=== PATIENT | female | born 1950 | race Caucasian/White ===

== ENCOUNTER 2018-06-13 04:41 | Emergency (ER) | payer MEDICARE ==
[2018-06-13] MEDS ORDERED: DIPH,PERTUS(ACELL)TETVAC-LF 0.5 ML VIAL IM ONE (04:44)
--- NOTE | 2018-06-13 05:13 | ED ---
General Adult HPI - General Stated complaint: FALL Time Seen by Provider: 06/13/18 04:43 Source: patient, EMS, RN notes reviewed, old records reviewed Mode of arrival: EMS Limitations: no limitations - History of Present Illness Initial comments: 68 yo female history of seizure disorder, remote history of subdural hematoma who is nonambulatory at baseline presents for evaluation of fall with head injury. Patient fell out of bed. No loss consciousness. No anticoagulation. She has some bleeding from her nose. Denies headache. Denies neck pain. Denies chest pain, abdominal pain, or hip pain. - Related Data Allergies Allergy/AdvReac Type Severity Reaction Status Date / Time hydrocodone Allergy Unknown Verified 06/13/18 04:47 Penicillins Allergy Unknown Verified 06/13/18 04:47 Childhood Review of Systems ROS Statement: Those systems with pertinent positive or pertinent negative responses have been documented in the HPI. ROS Other: All systems not noted in ROS Statement are negative. Past Medical History Past Medical History: Hypertension, Seizure Disorder Additional Past Medical History / Comment(s): Subdural hemorrhage History of Any Multi-Drug Resistant Organisms: None Reported Past Surgical History: Orthopedic Surgery Past Psychological History: No Psychological Hx Reported Smoking Status: Former smoker Past Alcohol Use History: None Reported, Rare Past Drug Use History: None Reported General Exam Limitations: no limitations General appearance: alert, in no apparent distress Head exam: Present: normocephalic Eye exam: Present: normal appearance, PERRL, EOMI ENT exam: Present: other (Dried blood bilateral external naris, no active bleeding, no septal hematoma, small superficial laceration on the left lateral side of the nose. Ecchymosis over the nasal bridge soft tissue swelling.) Neck exam: Present: normal inspection, full ROM. Absent: tenderness, meningismus Respiratory exam: Present: wheezes. Absent: respiratory distress Cardiovascular Exam: Present: regular rate, normal rhythm GI/Abdominal exam: Present: soft. Absent: distended, tenderness Extremities exam: Present: normal inspection, normal capillary refill. Absent: pedal edema Neurological exam: Present: alert. Absent: motor sensory deficit Skin exam: Present: warm, dry. Absent: cyanosis, diaphoretic Course Vital Signs 06/13/18 04:43 Temperature 97.7 F Pulse Rate 81 Respiratory 18 Rate Blood Pressure 149/90 O2 Sat by Pulse 98 Oximetry Medical Decision Making - Medical Decision Making 68 yo female with fall out of bed and head injury. Patient fell onto her face. She does have some bruising over the nasal bridge and superficial laceration on the left lateral aspect of her nose and upper lip. No need for sutures. Tetanus is updated. Patient has remote history of intracranial hemorrhage, she has [employer] shunt. She is nonambulatory and bedbound at baseline. Patient has no significant pain complaints. She does not want any pain medication the emergency department. Chest x-ray is obtained, negative for acute cardiopulmonary disease, no bony abnormality. X-ray of the pelvis shows remote fracture no acute fracture or dislocation. Head CT shows encephalomalacia, postsurgical changes, no acute cranial hemorrhage Cervical spine negative for fracture. Patient will be discharged back to residential. Disposition Clinical Impression: Fall, Closed head injury, Abrasion [facility] Condition: Fair Instructions: Concussion (ED), Fall Prevention for Older Adults (ED), Abrasion (ED) Is patient prescribed a controlled substance at d/c from ED?: No Referrals: Chirag Rodrigez DO [Primary Care Provider] - 1-2 days Time of Disposition: 05:32 - Out of Hospital Transfer - Req. Specs Out of Hospital Transfer - Requested Specifics: Other Non-Acute (Return to residential)
--- NOTE | 2018-06-13 05:16 | XR ---
EXAMINATION TYPE: XR pelvis AP view DATE OF EXAM: 06/13/2018 COMPARISON: NONE HISTORY: Pain after a fall TECHNIQUE: 2 views FINDINGS: There is deformity of the right hemipelvis related to old bilateral pubic rami fractures. I see no acute fracture. There is a plate and screw fixing an old subtrochanteric fracture of the righ t femur. Sacroiliac joints are intact. There is narrowing of hip joint spaces. IMPRESSION: Old fractures of the pelvis and proximal right femur. No acute fracture seen.
--- NOTE | 2018-06-13 05:17 | XR ---
EXAMINATION TYPE: XR chest 1V portable DATE OF EXAM: 06/13/2018 COMPARISON: NONE HISTORY: Chest pain TECHNIQUE: Single frontal view of the chest is obtained. FINDINGS: There is no heart failure nor confluent pneumonic infiltrate. There is poor inspiration. T here is ventriculoperitoneal shunt catheter noted. There is a right shoulder prosthesis. There is sig nificant spurring at the left shoulder joint. IMPRESSION: Poor inspiration. No active cardiopulmonary disease.
[2018-06-13] MEDS ORDERED: TOPICAL SKIN ADHESIVE 1 EACH AMP TOPICAL ONE (05:25)
--- NOTE | 2018-06-13 05:44 | CT ---
EXAMINATION TYPE: CT brain cecile sanchez DATE OF EXAM: 06/13/2018 COMPARISON: None HISTORY: Fall CT DLP: 1551.50 mGycm Automated exposure control for dose reduction was used. TECHNIQUE: CT scan of the head and cervical spine are performed without contrast. FINDINGS: There is ventricular oh peritoneal shunt catheter with the tip in the right lateral ventr icle. There is mild enlargement of the ventricles. 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 There is no midline shift. There is mildly displaced nasal bone fracture. The calvarium is intact. There is high attenuation over the right frontal lobe convexity. This is isodense with the brain. The re is a small linear area of higher attenuation. All of this could be dural thickening. There is dura l calcification. There is right temporal craniotomy defect. Dural thickening measures up to 5 mm. There are rods and screws fusing posteriorly the lumbar spine from C2 to T1 vertebra. There is a few millimeter anterior subluxation of C3 in relation to C4. There is no compression fracture. The skull base appears intact. I see no fracture. 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 Mild cerebral atrophy. Dural thickening over the right frontal and temporoparietal lobe consistent with old surgery. There is also dural calcification. I s ee no acute intracranial abnormality. Smaller area of encephalomalacia in the right posterior frontal lobe. Multilevel cervical spine posterior fusion surgery. Mild degenerative subluxation deformity at C3-4. No fracture. Nasal bone fracture. There is some deformity of the lateral wall of the right maxillary sinus that co uld be from old fracture.
[2018-06-13 05:58] VITALS: BP 154/74; PULSE 73; RESP 16; TEMP 97.8
== END 2018-06-13 06:17 ==
LOC: EC 04:41
DX: S01.21XA Laceration without foreign body of nose, initial encounter (principal); S01.511A Laceration without foreign body of lip, initial encounter; S09.90XA Unspecified injury of head, initial encounter; Z86.79 Personal history of other diseases of the circulatory system; Z23 Encounter for immunization; Z87.891 Personal history of nicotine dependence; Z88.0 Allergy status to penicillin; Z88.5 Allergy status to narcotic agent; Z98.2 Presence of cerebrospinal fluid drainage device; W06.XXXA Fall from bed, initial encounter
CPT/HCPCS: 70450; 71045; 72125; 72170; 90471; 90715; 99285

== ENCOUNTER 2021-06-13 08:39 | Observation (INO) | payer MEDICARE ==
[2021-06-13] MEDS ORDERED: PANTOPRAZOLE 40 MG/10 ML VIAL IVP STA (08:49)
--- NOTE | 2021-06-13 08:57 | ED ---
General Adult HPI - General Chief complaint: Nausea/Vomiting/Diarrhea Stated complaint: coffee ground emesis Time Seen by Provider: 06/13/21 08:43 Source: patient, RN notes reviewed Mode of arrival: EMS Limitations: no limitations, physical limitation - History of Present Illness Initial comments: Patient is a pleasant 71-year-old female presenting to the emergency department complaints of coffee-ground emesis. Patient has had 2 episodes that occurred today. Patient did have history of one similar episode previously, undetermined why. Patient does not believe she is on blood thinners. No abdominal pain. No nausea. Patient feels fine at this time and is symptom-free. - Related Data Home Medications Medication Instructions Recorded Confirmed Acetaminophen [Tylenol 8 Hour] 650 mg PO Q4H PRN 06/13/21 06/13/21 Budesonide [Pulmicort] 0.5 mg INHALATION RT-QID 06/13/21 06/13/21 Cholecalciferol [Vitamin D3 (10 10 mcg PO DAILY@0800 06/13/21 06/13/21 Mcg = 400 Iu)] Fluticasone Nasal [place] [Flonase 2 spr EA NOSTRIL DAILY PRN 06/13/21 06/13/21 Nasal [place]] Folic Acid 0.2 mg PO DAILY@0800 06/13/21 06/13/21 Furosemide [Lasix] 40 mg PO DAILY@0800 06/13/21 06/13/21 Ipratropium-Albuterol Nebulize 3 ml INHALATION RT-QID 06/13/21 06/13/21 [Duoneb 0.5 mg-3 mg/3 ml Soln] Ipratropium-Albuterol Nebulize 3 ml INHALATION RT-QID PRN 06/13/21 06/13/21 [Duoneb 0.5 mg-3 mg/3 ml Soln] Loratadine 10 mg PO DAILY@0800 06/13/21 06/13/21 Mag Hydrox/Al Hydrox/Simeth 15 ml PO Q6H PRN 06/13/21 06/13/21 [Maalox] Magnesium Hydroxide [Milk of 7,200 mg PO Q48H PRN 06/13/21 06/13/21 Magnesia Concentrate] Metoprolol Tartrate [Lopressor] 25 mg PO BID@0800,1700 06/13/21 06/13/21 Multivitamins, Thera [Multivitamin 1 tab PO DAILY@0800 06/13/21 06/13/21 (formulary)] Na Phos,M-B/Na Phos,Di-Ba [Fleet 133 ml RECTAL DAILY PRN 06/13/21 06/13/21 Adult] Nystatin 100,000 Unit/gm Powd 1 applic TOPICAL BID PRN 06/13/21 06/13/21 [Mycostatin Powder] Polyethylene Glycol 3350 [Miralax] 17 gm PO DAILY PRN 06/13/21 06/13/21 Potassium Chloride ER [K-Dur 10] 10 meq PO DAILY@0800 06/13/21 06/13/21 Sennosides/Docusate Sodium [Leona 1 tab PO BID@0800,1700 06/13/21 06/13/21 Colace] Tolterodine ER [Detrol LA] 2 mg PO DAILY@0800 06/13/21 06/13/21 Triamcinolone 0.1% Cream [Kenalog 1 applic TOPICAL BID 06/13/21 06/13/21 0.1% Cream] amLODIPine [Norvasc] 2.5 mg PO DAILY@0800 06/13/21 06/13/21 bisacodyL [Bisacodyl] 10 mg RECTAL DAILY PRN 06/13/21 06/13/21 lamoTRIgine [LaMICtal] 100 mg PO BID@0800,1700 06/13/21 06/13/21 Allergies Allergy/AdvReac Type Severity Reaction Status Date / Time bee venom protein (honey bee) Allergy Unknown Verified 06/13/21 09:37 hydrocodone Allergy Unknown Verified 06/13/21 09:37 Penicillins Allergy Unknown Verified 06/13/21 09:37 Childhood Review of Systems ROS Statement: Those systems with pertinent positive or pertinent negative responses have been documented in the HPI. ROS Other: All systems not noted in ROS Statement are negative. Constitutional: Denies: fever Eyes: Denies: eye pain ENT: Denies: ear pain Respiratory: Denies: cough Cardiovascular: Denies: chest pain Endocrine: Denies: fatigue Gastrointestinal: Reports: as per HPI. Denies: abdominal pain Genitourinary: Denies: dysuria Musculoskeletal: Denies: back pain Skin: Denies: rash Neurological: Denies: weakness Past Medical History Past Medical History: Hypertension, Seizure Disorder Additional Past Medical History / Comment(s): Subdural hemorrhage- [facility] History of Any Multi-Drug Resistant Organisms: MRSA Date of last positivie culture/infection: 11/02/18 MDRO Source:: THIGH Past Surgical History: Orthopedic Surgery Past Psychological History: No Psychological Hx Reported Smoking Status: Former smoker Past Alcohol Use History: None Reported, Rare Past Drug Use History: None Reported General Exam Limitations: no limitations, physical limitation General appearance: alert, in no apparent distress Head exam: Present: normocephalic Eye exam: Present: normal appearance Neck exam: Present: normal inspection Respiratory exam: Present: normal lung sounds bilaterally Cardiovascular Exam: Present: regular rate, normal rhythm GI/Abdominal exam: Present: soft, normal bowel sounds. Absent: distended, tenderness, pulsatile mass Extremities exam: Present: normal inspection, pedal edema (Mild bilateral, patient states chronic), other (Arthritic changes bilateral hands). Absent: calf tenderness Neurological exam: Present: alert Psychiatric exam: Present: normal affect, normal mood Skin exam: Present: normal color Course Vital Signs 06/13/21 08:44 Temperature 98.6 F Pulse Rate 86 Respiratory 18 Rate Blood Pressure 125/92 O2 Sat by Pulse 97 Oximetry Medical Decision Making - Medical Decision Making Patient reevaluated and updated. Case discussed with Dr. Preston, covering Dr. varela, who will admit. - Lab Data Result diagrams: 06/13/21 09:12 06/13/21 09:12 Lab Results 06/13/21 06/13/21 06/13/21 Range/Units 09:12 09:12 09:12 WBC 10.3 (3.8-10.6) k/uL RBC 4.42 (3.80-5.40) m/uL Hgb 14.8 (11.4-16.0) gm/dL Hct 41.1 (34.0-46.0) % MCV 92.9 (80.0-100.0) fL MCH 33.5 (25.0-35.0) pg MCHC 36.0 (31.0-37.0) g/dL RDW 12.5 (11.5-15.5) % Plt Count 209 (150-450) k/uL MPV 7.1 Neutrophils % 83 % Lymphocytes % 8 % Monocytes % 6 % Eosinophils % 2 % Basophils % 1 % Neutrophils # 8.5 H (1.3-7.7) k/uL Lymphocytes # 0.8 L (1.0-4.8) k/uL Monocytes # 0.6 (0-1.0) k/uL Eosinophils # 0.2 (0-0.7) k/uL Basophils # 0.1 (0-0.2) k/uL PT 10.2 (9.0-12.0) sec INR 0.9 (<1.2) APTT 22.9 (22.0-30.0) sec Sodium 138 (137-145) mmol/L Potassium 4.1 (3.5-5.1) mmol/L Chloride 101 (98-107) mmol/L Carbon Dioxide 34 H (22-30) mmol/L Anion Gap 3 mmol/L BUN 22 H (7-17) mg/dL Creatinine 0.45 L (0.52-1.04) mg/dL Est GFR (CKD-EPI)AfAm >90 (>60 ml/min/1.73 sqM) Est GFR (CKD-EPI)NonAf >90 (>60 ml/min/1.73 sqM) Glucose 121 H (74-99) mg/dL Calcium 9.2 (8.4-10.2) mg/dL Total Bilirubin 0.5 (0.2-1.3) mg/dL AST 40 H (14-36) U/L ALT 42 H (4-34) U/L Alkaline Phosphatase 110 (38-126) U/L Total Protein 6.7 (6.3-8.2) g/dL Albumin 3.9 (3.5-5.0) g/dL Disposition Clinical Impression: Upper GI hemorrhage Disposition: ADMITTED IP TO THIS HOSP Is patient prescribed a controlled substance at d/c from ED?: No Referrals: Chirag Rodrigez DO [Primary Care Provider] - 1-2 days Decision Time: 09:57
[2021-06-13 09:24] LABS: Basophils # (A) 0.1 k/uL (0-0.2); Basophils % (A) 1 %; Eosinophils # (A) 0.2 k/uL (0-0.7); Eosinophils % (A) 2 %; HCT 41.1 % (34.0-46.0); HGB 14.8 gm/dL (11.4-16.0); Lymphocytes # (A) 0.8 k/uL (1.0-4.8); Lymphocytes % (A) 8 %; MCH 33.5 pg (25.0-35.0); MCV 92.9 fL (80.0-100.0); Mean Platelet Volume 7.1; Monocytes # (A) 0.6 k/uL (0-1.0); Monocytes % (A) 6 %; Neutrophils # (A) 8.5 k/uL (1.3-7.7); Neutrophils % (A) 83 %; Platelet Count 209 k/uL (150-450); RBC 4.42 m/uL (3.80-5.40); RDW 12.5 % (11.5-15.5); WBC 10.3 k/uL (3.8-10.6)
[2021-06-13 09:36] LABS: INR 0.9 (<1.2); Partial Thromboplastin Time 22.9 sec (22.0-30.0); Prothrombin Time 10.2 sec (9.0-12.0)
[2021-06-13 09:39] LABS: ALT 42 U/L (4-34); AST 40 U/L (14-36); African American GFR (CKD) >90 (>60 ml/min/1.73 sqM); Albumin 3.9 g/dL (3.5-5.0); Alkaline Phosphatase 110 U/L (38-126); Anion Gap 3 mmol/L; Blood Urea Nitrogen 22 mg/dL (7-17); Calcium 9.2 mg/dL (8.4-10.2); Carbon Dioxide 34 mmol/L (22-30); Chloride 101 mmol/L (98-107); Glucose 121 mg/dL (74-99); Non-African American GFR(CKD) >90 (>60 ml/min/1.73 sqM); Potassium 4.1 mmol/L (3.5-5.1); Sodium 138 mmol/L (137-145); Total Bilirubin 0.5 mg/dL (0.2-1.3); Total Protein 6.7 g/dL (6.3-8.2)
[2021-06-13] MEDS ORDERED: NALOXONE 0.4 MG/ML 1 ML VIAL IV PRN (09:57)
[2021-06-13] MEDS: SODIUM CHLORIDE 0.9% 1,000 ML IV SCH (10:19)
[2021-06-13] MEDS ORDERED: ACETAMINOPHEN TAB 325 MG TAB PO PRN (11:16)
[2021-06-13] MEDS: NON FORMULARY DRUG (Folic Acid [Folic Acid] 0.4 MG Tablet) PO SCH (12:07)
[2021-06-13] MEDS: METOPROLOL TARTRATE 25 MG TAB PO SCH ×2 (12:08→21:40)
[2021-06-13] MEDS: lamoTRIgine 100 MG TAB PO SCH ×2 (12:08→21:40)
[2021-06-13] MEDS: amLODIPine 2.5 MG TAB PO SCH (12:08)
[2021-06-13] MEDS: BUDESONIDE 0.5 MG/2 ML NEBU INHALATION SCH ×3 (13:09→20:28)
[2021-06-13] MEDS: IPRATROPIUM-ALBUTEROL 3 ML NEB INHALATION SCH ×3 (13:27→20:21)
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
[2021-06-13] MEDS: OXYBUTYNIN XL 5 MG TAB.ER.24 PO SCH (13:54)
--- NOTE | 2021-06-13 16:27 | P.HPIM ---
History of Present Illness H&P Date: 06/13/21 Chief Complaint: Coffee-ground emesis History of presenting complaint: This is 71-year-old patient, who follows with Dr. Rodrigez, resident at [facility]. Chronic stable medical conditions include hypertension, seizure disorder, chronic medical debility patient's non-ambulatory, significant arthritis. Patient was sent in for coffee-ground emesis. That happened earlier today. No abdominal pain. No nausea vomiting. No fever. Patient doesn't believe she takes at the aspirin or Aleve at this point. Currently comfortable laying in bed. We have had 1 prior episode in the remote past. Review of systems: GEN.: Tired EYES: None HEENT: None NECK: None RESPIRATORY: None CARDIOVASCULAR: None GASTROINTESTINAL: As above GENITOURINARY: Urinary incontinence MUSCULOSKELETAL: Joint pains LYMPHATICS: None HEMATOLOGICAL: None PSYCHIATRY: None NEUROLOGICAL: Chronic weakness of the legs Past medical history to include: Chronic constipation, COPD, urinary incontinence, hypertension, seizure disorder, subdural hemorrhage Social history: Patient smoked up to 2 packs a day until about a month ago. No alcohol. At [facility] Family history: Reviewed, noncontributory to presentation Physical examination: VITAL SIGNS: 98.2, 84, 16, 128/78, 97% room air GENERAL: BMI 30.2, reclining in bed, awake EYES: Pupils equal. Conjunctiva normal. HEENT: External appearance of nose and ears normal, oral cavity grossly normal. NECK: JVD not raised; masses not palpable. HEART: First and second heart sounds are normal; no edema. LUNGS: Respiratory rate normal; diminished breath sounds. ABDOMEN: Soft, nontender, liver spleen not palpable, no masses palpable. PSYCH: Alert and oriented x3; mood and affect normal. MUSCULAR skeletal: Evidence of severe OA the hands with significant finger deformity NEUROLOGICAL: Cranial nerves grossly intact; no facial asymmetry, decreased bowel lower extremity with bilateral foot drop LYMPHATICS: No lymph nodes palpable in the axilla and neck INVESTIGATIONS, reviewed in the clinical context: WBC 10.3 hemoglobin 14.8 platelets 209 potassium 4.1 BUN 22 creatinine 0.45 Assessment and plan: -Patient presents coffee-ground emesis. Possible acute on chronic gastritis. Patient has no abdominal pain. No fever no chills. Hemoglobin is stable. Start the patient on PPI. GI consulted. Follow H&H -Severe bilateral primary osteoarthritis Use Tylenol as needed -Essential hypertension Continue with Norvasc and Lopressor -Chronic urinary stress incontinence Continue Detrol LA -COPD in a previous smoker Continue with DuoNeb and inhaled corticosteroids -Chronic medical debility Patient is non-ambulatory -Chronic bilateral foot drop Care was discussed the patient. Questions answered. Home medications resumed. Follow H&H. Placed on clear liquids. Nothing by mouth after midnight. For a possible EGD. Past Medical History Past Medical History: Hypertension, Seizure Disorder Additional Past Medical History / Comment(s): Subdural hemorrhage- [facility] History of Any Multi-Drug Resistant Organisms: MRSA Date of last positivie culture/infection: 11/02/18 MDRO Source:: THIGH Past Surgical History: Orthopedic Surgery Past Psychological History: No Psychological Hx Reported Smoking Status: Former smoker Past Alcohol Use History: None Reported, Rare Past Drug Use History: None Reported Medications and Allergies Home Medications Medication Instructions Recorded Confirmed Type Acetaminophen [Tylenol 8 Hour] 650 mg PO Q4H PRN 06/13/21 06/13/21 History Budesonide [Pulmicort] 0.5 mg INHALATION RT-QID 06/13/21 06/13/21 History Cholecalciferol [Vitamin D3 (10 10 mcg PO DAILY@0806/13/21 06/13/21 History Mcg = 400 Iu)] Fluticasone Nasal Elrod [Flonase 2 spr EA NOSTRIL DAILY PRN 06/13/21 06/13/21 History Nasal Elrod] Folic Acid 0.2 mg PO DAILY@0806/13/21 06/13/21 History Furosemide [Lasix] 40 mg PO DAILY@79906/13/21 06/13/21 History Ipratropium-Albuterol Nebulize 3 ml INHALATION RT-QID 06/13/21 06/13/21 History [Duoneb 0.5 mg-3 mg/3 ml Soln] Ipratropium-Albuterol Nebulize 3 ml INHALATION RT-QID PRN 06/13/21 06/13/21 History [Duoneb 0.5 mg-3 mg/3 ml Soln] Loratadine 10 mg PO DAILY@0800 06/13/21 06/13/21 History Mag Hydrox/Al Hydrox/Simeth 15 ml PO Q6H PRN 06/13/21 06/13/21 History [Maalox] Magnesium Hydroxide [Milk of 7,200 mg PO Q48H PRN 06/13/21 06/13/21 History Magnesia Concentrate] Metoprolol Tartrate [Lopressor] 25 mg PO BID@0800,1700 06/13/21 06/13/21 History Multivitamins, Thera [Multivitamin 1 tab PO DAILY@0800 06/13/21 06/13/21 History (formulary)] Na Phos,M-B/Na Phos,Di-Ba [Fleet 133 ml RECTAL DAILY PRN 06/13/21 06/13/21 History Adult] Nystatin 100,000 Unit/gm Powd 1 applic TOPICAL BID PRN 06/13/21 06/13/21 History [Mycostatin Powder] Polyethylene Glycol 3350 [Miralax] 17 gm PO DAILY PRN 06/13/21 06/13/21 History Potassium Chloride ER [K-Dur 10] 10 meq PO DAILY@0800 06/13/21 06/13/21 History Sennosides/Docusate Sodium [Leona 1 tab PO BID@0800,1700 06/13/21 06/13/21 History Colace] Tolterodine ER [Detrol LA] 2 mg PO DAILY@0800 06/13/21 06/13/21 History Triamcinolone 0.1% Cream [Kenalog 1 applic TOPICAL BID 06/13/21 06/13/21 History 0.1% Cream] amLODIPine [Norvasc] 2.5 mg PO DAILY@0800 06/13/21 06/13/21 History bisacodyL [Bisacodyl] 10 mg RECTAL DAILY PRN 06/13/21 06/13/21 History lamoTRIgine [LaMICtal] 100 mg PO BID@0800,1700 06/13/21 06/13/21 History Allergies Allergy/AdvReac Type Severity Reaction Status Date / Time bee venom protein (honey bee) Allergy Unknown Verified 06/13/21 09:37 hydrocodone Allergy Unknown Verified 06/13/21 09:37 Penicillins Allergy Unknown Verified 06/13/21 09:37 Childhood Physical Exam Vitals: Vital Signs Temp Pulse Pulse Resp BP BP Pulse Ox 06/13/21 15:27 73 16 06/13/21 15:20 72 16 06/13/21 15:01 98.7 F 79 18 118/65 94 L 06/13/21 13:36 73 18 06/13/21 13:27 75 16 06/13/21 11:55 98.2 F 84 16 128/78 97 06/13/21 10:24 98.4 F 81 16 145/64 97 06/13/21 08:44 98.6 F 86 18 125/92 97 Intake and Output 06/13/21 06/13/21 06/13/21 06:59 14:59 22:59 Intake Total 340 Balance 340 Intake: Oral 340 Other: Weight 72.575 kg Results CBC & Chem 7: 06/13/21 09:12 06/13/21 09:12 Labs: Abnormal Lab Results - Last 24 Hours (Table) 06/13/21 06/13/21 Range/Units 09:12 09:12 Neutrophils # 8.5 H (1.3-7.7) k/uL Lymphocytes # 0.8 L (1.0-4.8) k/uL Carbon Dioxide 34 H (22-30) mmol/L BUN 22 H (7-17) mg/dL Creatinine 0.45 L (0.52-1.04) mg/dL Glucose 121 H (74-99) mg/dL AST 40 H (14-36) U/L ALT 42 H (4-34) U/L
[2021-06-13] MEDS: PANTOPRAZOLE 40 MG TABLET PO SCH (21:40)
[2021-06-14 06:33] LABS: Basophils # (A) 0.1 k/uL (0-0.2); Basophils % (A) 1 %; Eosinophils # (A) 0.3 k/uL (0-0.7); Eosinophils % (A) 5 %; HCT 38.7 % (34.0-46.0); HGB 12.6 gm/dL (11.4-16.0); Lymphocytes # (A) 1.3 k/uL (1.0-4.8); Lymphocytes % (A) 22 %; MCH 31.8 pg (25.0-35.0); MCHC 32.7 g/dL (31.0-37.0); MCV 97.3 fL (80.0-100.0); Monocytes # (A) 0.5 k/uL (0-1.0); Monocytes % (A) 8 %; Neutrophils # (A) 3.7 k/uL (1.3-7.7); Neutrophils % (A) 62 %; Platelet Count 189 k/uL (150-450); RBC 3.98 m/uL (3.80-5.40); RDW 13.5 % (11.5-15.5); WBC 5.9 k/uL (3.8-10.6)
[2021-06-14] MEDS: BUDESONIDE 0.5 MG/2 ML NEBU INHALATION SCH ×2 (07:41→11:20)
[2021-06-14] MEDS: IPRATROPIUM-ALBUTEROL 3 ML NEB INHALATION SCH ×2 (07:41→11:20)
[2021-06-14 07:56] LABS: African American GFR (CKD) >90 (>60 ml/min/1.73 sqM); Anion Gap 6 mmol/L; Blood Urea Nitrogen 15 mg/dL (7-17); Calcium 8.8 mg/dL (8.4-10.2); Carbon Dioxide 25 mmol/L (22-30); Chloride 105 mmol/L (98-107); Glucose 84 mg/dL (74-99); Non-African American GFR(CKD) >90 (>60 ml/min/1.73 sqM); Sodium 136 mmol/L (137-145)
[2021-06-14] MEDS ORDERED: MULTIVITAMINS, THERA 1 EACH TAB PO SCH (08:00)
[2021-06-14] MEDS: amLODIPine 2.5 MG TAB PO SCH (08:14)
[2021-06-14] MEDS: lamoTRIgine 100 MG TAB PO SCH (08:14)
[2021-06-14] MEDS: PANTOPRAZOLE 40 MG TABLET PO SCH (08:14)
[2021-06-14] MEDS: METOPROLOL TARTRATE 25 MG TAB PO SCH (08:14)
[2021-06-14] MEDS: NON FORMULARY DRUG (Folic Acid [Folic Acid] 0.4 MG Tablet) PO SCH (08:21)
[2021-06-14] MEDS ORDERED: PANTOPRAZOLE 40 MG/10 ML VIAL IV SCH (09:00)
[2021-06-14] MEDS: OXYBUTYNIN XL 5 MG TAB.ER.24 PO SCH (09:54)
[2021-06-14] MEDS: SODIUM CHLORIDE 0.9% 1,000 ML IV SCH (11:01)
--- NOTE | 2021-06-14 11:16 | P.PN ---
Subjective Progress Note Date: 06/14/21 Principal diagnosis: Coffee-ground emesis 71-year-old female who presented to the emergency department yesterday for [facility] after having reportedly coffee-ground emesis. The patient states that she just Finished drinking 2 cups of coffee and vomited it back up. She states she had no nausea or abdominal pain associated with it. She does state she had a similar episode many many years ago. She is denying any abdominal pain, nausea, or vomiting. She has had no further vomiting since she has been in the hospital. Her hemoglobin is stable at 12.6. She denies any bowel movements. States she feels well. Objective - Vital Signs Vital signs: Vital Signs Temp 97.5 F L 06/14/21 07:00 Pulse 63 06/14/21 07:58 Resp 20 06/14/21 07:00 BP 112/64 06/14/21 07:00 Pulse Ox 92 L 06/14/21 07:00 Intake & Output 06/13/21 06/14/21 06/14/21 18:59 06:59 18:59 Intake Total 340 240 180 Output Total 0 Balance 340 240 180 Weight 72.575 kg Intake: Oral 340 240 180 Output: Emesis 0 Other: Voiding Method Diaper Diaper Incontinent Incontinent # Voids 1 1 - Exam General appearance: The patient is alert, oriented, appears in no acute distress. HET: Head is normocephalic and atraumatic. Conjunctiva pink. Sclera anicteric. Neck: Supple without lymphadenopathy. Abdomen: Soft, nontender, nondistended with bowel sounds. No guarding or rigidity. Extremities: Normal skin color and turgor. No pedal edema Skin: No rashes, no jaundice Neurological: No focal deficits. Alert and oriented 3. - Labs CBC & Chem 7: 06/14/21 06:03 06/14/21 06:03 Labs: Abnormal Lab Results - Last 24 Hours (Table) 06/14/21 Range/Units 06:03 Sodium 136 L (137-145) mmol/L Creatinine 0.42 L (0.52-1.04) mg/dL Assessment and Plan (1) Coffee ground emesis Narrative/Plan: 71-year-old female presented to the emergency department from [facility] facility with reported coffee ground emesis 2 this morning. The patient reports she had 2 cups of coffee followed by 2 episodes of vomiting which she reports she felt like was her coffee. She denied any nausea prior to or abdominal pain. She has no previous history of GI bleed. She denies any NSAID or anticoagulation. No previous EGD, reports last colonoscopy 2-3 years ago reportedly normal. Occasionally gets acid reflux and takes Tums with relief. Admitting blood work shows WBC 10.3, hemoglobin 14.8, hematocrit 41.1, platelet count 209,000, INR 0.9, mild elevation in her BUN at 22. It is unclear if patient actually is having coffee-ground emesis or if she just vomited her coffee which she was drinking. Hemoglobin was stable on admission. Current Visit: Yes Status: Acute Code(s): K92.0 - HEMATEMESIS SNOMED Code(s): 95140177 Plan: 1. Advance to regular diet 2. Continue Protonix 40 mg daily 3. CBC reviewed 4. Patient has had no further episodes of emesis since being hospitalized, hemoglobin is stable at 12.6. No plans on endoscopic evaluation at this time. Thank you for this consultation, patient is cleared for discharge from [facility] Dr. Vanesa Willis I agree with the dictator's note, documented as a scribe by Ashleigh Latif.
[2021-06-14 14:33] VITALS: BP 102/64; PULSE 74; RESP 21; TEMP 98.1
--- NOTE | 2021-06-14 21:06 | P.DS ---
Providers Date of admission: 06/13/21 10:04 Expected date of discharge: 06/14/21 Attending physician: Emil Preston Consults: 06/13/21 09:57 Consult Physician Urgent Consulting Provider: Pamela Willis Consult Reason/Comments: gi hemorrhage Do you want consulting provider notified?: Yes Primary care physician: Chirag [facility] Course: Chief Complaint: Coffee-ground emesis History of presenting complaint: This is 71-year-old patient, who follows with Dr. Rodrigez, resident at [facility]. Chronic stable medical conditions include hypertension, seizure disorder, chronic medical debility patient's non-ambulatory, significant arthritis. Patient was sent in for coffee-ground emesis. That happened earlier today. No abdominal pain. No nausea vomiting. No fever. Patient doesn't believe she takes at the aspirin or Aleve at this point. Currently comfortable laying in bed. We have had 1 prior episode in the remote past. Patient is put on PPI. [place] to be possible gastritis. Seen by GI. Not for any intervention. Patient tolerating a diet. Cleared for discharge. Hemoglobin stable Discussion and discharge planning more than 35 minutes Consultation: Dr. Vanesa Willis from GI Past medical history to include: Chronic constipation, COPD, urinary incontinence, hypertension, seizure disorder, subdural hemorrhage Social history: Patient smoked up to 2 packs a day until about a month ago. No alcohol. At [facility] Family history: Reviewed, noncontributory to presentation Physical examination: VITAL SIGNS: 8.1, 74, 21, 102/64, 90% room air GENERAL: BMI 30.2, reclining in bed, awake EYES: Pupils equal. Conjunctiva normal. HEENT: External appearance of nose and ears normal, oral cavity grossly normal. NECK: JVD not raised; masses not palpable. HEART: First and second heart sounds are normal; no edema. LUNGS: Respiratory rate normal; diminished breath sounds. ABDOMEN: Soft, nontender, liver spleen not palpable, no masses palpable. PSYCH: Alert and oriented x3; mood and affect normal. MUSCULAR skeletal: Evidence of severe OA the hands with significant finger deformity NEUROLOGICAL: Cranial nerves grossly intact; no facial asymmetry, decreased bowel lower extremity with bilateral foot drop INVESTIGATIONS, reviewed in the clinical context: June 14: Hemoglobin 12.6 potassium 4 WBC 10.3 hemoglobin 14.8 platelets 209 potassium 4.1 BUN 22 creatinine 0.45 Assessment and plan: -Patient presents coffee-ground emesis. Possible acute on chronic gastritis. Hemoglobin remained stable. Not for any endoscopy. Started on PPI -Severe bilateral primary osteoarthritis Use Tylenol as needed -Essential hypertension Continue with Norvasc and Lopressor -Chronic urinary stress incontinence Continue Detrol LA -COPD in a previous smoker Continue with DuoNeb and inhaled corticosteroids -Chronic medical debility Patient is non-ambulatory -Chronic bilateral foot drop Disposition: ECF/[facility] Patient Condition at Discharge: Good Plan - Discharge Summary Discharge Rx Participant: Yes New Discharge Prescriptions: New Pantoprazole [Protonix] 40 mg PO AC-BID tablet.dr Continue Triamcinolone 0.1% Cream [Kenalog 0.1% Cream] 1 applic TOPICAL BID Sennosides/Docusate Sodium [Leona Colace] 1 tab PO BID@0800,1700 Nystatin 100,000 Unit/gm Powd [Mycostatin Powder] 1 applic TOPICAL BID PRN PRN Reason: Skin Irritation Multivitamins, Thera [Multivitamin (formulary)] 1 tab PO DAILY@0800 Metoprolol Tartrate [Lopressor] 25 mg PO BID@0800,1700 Mag Hydrox/Al Hydrox/Simeth [Maalox] 15 ml PO Q6H PRN PRN Reason: Gi Upset Ipratropium-Albuterol Nebulize [Duoneb 0.5 mg-3 mg/3 ml Soln] 3 ml INHALATION RT-QID PRN PRN Reason: Shortness Of Breath Or Wheezing Ipratropium-Albuterol Nebulize [Duoneb 0.5 mg-3 mg/3 ml Soln] 3 ml INHALATION RT-QID Fluticasone Nasal Martin [Flonase Nasal Martin] 2 spr EA NOSTRIL DAILY PRN PRN Reason: Congestion Cholecalciferol [Vitamin D3 (10 Mcg = 400 Iu)] 10 mcg PO DAILY@0800 Budesonide [Pulmicort] 0.5 mg INHALATION RT-QID Acetaminophen [Tylenol 8 Hour] 650 mg PO Q4H PRN PRN Reason: Pain Tolterodine ER [Detrol LA] 2 mg PO DAILY@0800 Potassium Chloride ER [K-Dur 10] 10 meq PO DAILY@0800 Polyethylene Glycol 3350 [Miralax] 17 gm PO DAILY PRN PRN Reason: Constipation Na Phos,M-B/Na Phos,Di-Ba [Fleet Adult] 133 ml RECTAL DAILY PRN PRN Reason: Constipation Magnesium Hydroxide [Milk of Magnesia Concentrate] 7,200 mg PO Q48H PRN PRN Reason: Constipation lamoTRIgine [LaMICtal] 100 mg PO BID@0800,1700 Furosemide [Lasix] 40 mg PO DAILY@0800 Folic Acid 0.2 mg PO DAILY@0800 bisacodyL [Bisacodyl] 10 mg RECTAL DAILY PRN PRN Reason: Constipation amLODIPine [Norvasc] 2.5 mg PO DAILY@0800 Discontinued Loratadine 10 mg PO DAILY@0800 Discharge Medication List Acetaminophen [Tylenol 8 Hour] 650 mg PO Q4H PRN 06/13/21 [History] Budesonide [Pulmicort] 0.5 mg INHALATION RT-QID 06/13/21 [History] Cholecalciferol [Vitamin D3 (10 Mcg = 400 Iu)] 10 mcg PO DAILY@0800 06/13/21 [History] Fluticasone Nasal Martin [Flonase Nasal Martin] 2 spr EA NOSTRIL DAILY PRN 06/13/21 [History] Folic Acid 0.2 mg PO DAILY@0800 06/13/21 [History] Furosemide [Lasix] 40 mg PO DAILY@0800 06/13/21 [History] Ipratropium-Albuterol Nebulize [Duoneb 0.5 mg-3 mg/3 ml Soln] 3 ml INHALATION RT-QID 06/13/21 [History] Ipratropium-Albuterol Nebulize [Duoneb 0.5 mg-3 mg/3 ml Soln] 3 ml INHALATION RT-QID PRN 06/13/21 [History] Mag Hydrox/Al Hydrox/Simeth [Maalox] 15 ml PO Q6H PRN 06/13/21 [History] Magnesium Hydroxide [Milk of Magnesia Concentrate] 7,200 mg PO Q48H PRN 06/13/21 [History] Metoprolol Tartrate [Lopressor] 25 mg PO BID@0800,1700 06/13/21 [History] Multivitamins, Thera [Multivitamin (formulary)] 1 tab PO DAILY@0800 06/13/21 [History] Na Phos,M-B/Na Phos,Di-Ba [Fleet Adult] 133 ml RECTAL DAILY PRN 06/13/21 [History] Nystatin 100,000 Unit/gm Powd [Mycostatin Powder] 1 applic TOPICAL BID PRN 06/13/21 [History] Polyethylene Glycol 3350 [Miralax] 17 gm PO DAILY PRN 06/13/21 [History] Potassium Chloride ER [K-Dur 10] 10 meq PO DAILY@0800 06/13/21 [History] Sennosides/Docusate Sodium [Leona Colace] 1 tab PO BID@0800,1700 06/13/21 [History] Tolterodine ER [Detrol LA] 2 mg PO DAILY@0800 06/13/21 [History] Triamcinolone 0.1% Cream [Kenalog 0.1% Cream] 1 applic TOPICAL BID 06/13/21 [History] amLODIPine [Norvasc] 2.5 mg PO DAILY@0800 06/13/21 [History] bisacodyL [Bisacodyl] 10 mg RECTAL DAILY PRN 06/13/21 [History] lamoTRIgine [LaMICtal] 100 mg PO BID@0800,1700 06/13/21 [History] Pantoprazole [Protonix] 40 mg PO AC-BID tablet. 06/14/21 [Rx] Follow up Appointment(s)/Referral(s): Chirag Rodrigez DO [Primary Care Provider] - 1-2 days Discharge Disposition: TRANSFER TO SNF/ECF
== END 2021-06-14 16:46 ==
LOC: EC 08:39 → 6NMEDSUR 10:04
PROVIDERS: ADMIT Hospitalist; ATTEND Hospitalist
DX: K92.0 Hematemesis (principal); I10 Essential (primary) hypertension; K21.9 Gastro-esophageal reflux disease without esophagitis; M19.042 Primary osteoarthritis, left hand; M19.041 Primary osteoarthritis, right hand; J44.9 Chronic obstructive pulmonary disease, unspecified; G40.909 Epilepsy, unspecified, not intractable, without status epilepticus; K59.09 Other constipation; N39.3 Stress incontinence (female) (male); R53.81 Other malaise; M21.371 Foot drop, right foot; M21.372 Foot drop, left foot; Z20.822 Contact with and (suspected) exposure to COVID-19; Z79.51 Long term (current) use of inhaled steroids; Z79.899 Other long term (current) drug therapy; Z88.0 Allergy status to penicillin; Z88.5 Allergy status to narcotic agent; Z91.030 Bee allergy status; Z87.891 Personal history of nicotine dependence; Z86.14 Personal history of Methicillin resistant Staphylococcus aureus infection; Z87.820 Personal history of traumatic brain injury
CPT/HCPCS: 96374; 99285; 36415; 94640 ×4; 97162; 97165; 80053; 80048; 85025 ×2; 85610; 85730; 87635; G0378 ×2; C9113

== ENCOUNTER 2024-09-07 21:32 | Observation (INO) | payer MEDICARE ==
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
[2024-09-07 22:43] LABS: Basophils % (A) 0 %; Eosinophils # (A) 0.1 k/uL (0-0.7); Eosinophils % (A) 2 %; HCT 38.1 % (34.0-46.0); HGB 12.3 gm/dL (11.4-16.0); Hypochromasia Slight; Lymphocytes # (A) 1.2 k/uL (1.0-4.8); Lymphocytes % (A) 18 %; MCH 32.4 pg (25.0-35.0); MCHC 32.1 g/dL (31.0-37.0); MCV 100.6 fL (80.0-100.0); Macrocytosis Slight; Mean Platelet Volume 8.6; Monocytes # (A) 0.6 k/uL (0-1.0); Monocytes % (A) 9 %; Neutrophils # (A) 4.5 k/uL (1.3-7.7); Neutrophils % (A) 67 %; Platelet Count 178 k/uL (150-450); RBC 3.79 m/uL (3.80-5.40); RDW 14.1 % (11.5-15.5); WBC 6.7 k/uL (3.8-10.6)
[2024-09-07 22:58] LABS: ALT 45 U/L (4-34); African American GFR (CKD) 53 (>60 ml/min/1.73 sqM); Anion Gap 4 mmol/L; Blood Urea Nitrogen 43 mg/dL (7-17); Calcium 9.3 mg/dL (8.4-10.2); Carbon Dioxide 28 mmol/L (22-30); Chloride 108 mmol/L (98-107); Glucose 102 mg/dL (74-99); Non-African American GFR(CKD) 46 (>60 ml/min/1.73 sqM); Sodium 140 mmol/L (137-145); Total Bilirubin 0.8 mg/dL (0.2-1.3)
[2024-09-07 23:26] LABS: AST 56 U/L (14-36); Potassium 5.7 mmol/L (3.5-5.1)
[2024-09-07 23:27] LABS: Albumin 3.8 g/dL (3.5-5.0); Alkaline Phosphatase 111 U/L (38-126); Total Protein 7.4 g/dL (6.3-8.2)
[2024-09-08] MEDS: IPRATROPIUM-ALBUTEROL 3 ML NEB INHALATION STA (00:57)
--- NOTE | 2024-09-08 01:05 | XR ---
EXAM: XR Chest, 2 Views CLINICAL HISTORY: XR Reason: wheezing, crackles TECHNIQUE: Frontal and lateral views of the chest. COMPARISON: December 29, 2018 FINDINGS: Lungs: Somewhat underinflated lungs. No focal infiltrate or consolidation is seen on the AP view. Trace amount of fluid along the right major fissure versus atelectasis in the inferior aspect of the right upper lobe seen on the lateral view only. Pleural space: Unremarkable. No pneumothorax. Heart: Unremarkable. No cardiomegaly. Mediastinum: Unremarkable. Normal mediastinal contour. Bones/joints: Previous multilevel instrumentation, fusion, and laminectomy in the lower cervical spine, unchanged. Previous right shoulder hemiarthroplasty, unchanged. Severe degenerative changes of the left shoulder, unchanged. No acute fracture. 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 Upper abdomen: There is no pneumoperitoneum under the diaphragm. IMPRESSION: 1. Somewhat underinflated lungs. No focal infiltrate or consolidation is seen on the AP view. 2. Trace amount of fluid along the right major fissure versus atelectasis in the inferior aspect of the right upper lobe seen on the lateral view only.
[2024-09-08] MEDS ORDERED: NALOXONE 0.4 MG/ML 1 ML VIAL IV PRN (01:19)
[2024-09-08] MEDS: SODIUM CHLORIDE 0.9% 1,000 ML IV SCH (01:54)
[2024-09-08] MEDS: AZITHROMYCIN 500 MG in SODIUM CHLORIDE 0.9% 250 ML IVPB STA (01:55)
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
[2024-09-08 07:22] LABS: African American GFR (CKD) 55 (>60 ml/min/1.73 sqM); Anion Gap 2 mmol/L; Blood Urea Nitrogen 38 mg/dL (7-17); Carbon Dioxide 29 mmol/L (22-30); Chloride 111 mmol/L (98-107); Glucose 78 mg/dL (74-99); Non-African American GFR(CKD) 48 (>60 ml/min/1.73 sqM); Potassium 4.2 mmol/L (3.5-5.1); Sodium 142 mmol/L (137-145)
[2024-09-08] MEDS: IPRATROPIUM-ALBUTEROL 3 ML NEB INHALATION SCH ×3 (08:08→21:29)
[2024-09-08] MEDS: BUDESONIDE 1 MG/2 ML NEBU INHALATION SCH (08:08)
[2024-09-08] MEDS ORDERED: MAG HYDROX/AL HYDROX/SIMETH 30 ML CUP PO PRN (10:38)
[2024-09-08] MEDS ORDERED: ACETAMINOPHEN TAB 325 MG TAB PO PRN (10:38)
[2024-09-08] MEDS ORDERED: polyethylene glycoL 3350 17 GM POWD.PACK PO PRN (10:38)
[2024-09-08] MEDS ORDERED: bisacodyL 10 MG SUPP RECTAL PRN (10:38)
[2024-09-08] MEDS ORDERED: ARTIFICIAL TEARS-HYPROMELLOSE DROPS 15 ML BTL BOTH EYES PRN (10:38)
[2024-09-08] MEDS: NON FORMULARY DRUG (Fluticasone Furoate [Arnuity Ellipta] 100 MCG Blst.W.Dev) INHALATION SCH (10:45)
[2024-09-08] MEDS: TOLTERODINE 2 MG PO SCH (10:46)
[2024-09-08] MEDS: PANTOPRAZOLE 40 MG TABLET PO SCH (11:05)
[2024-09-08] MEDS: METOPROLOL TARTRATE 25 MG TAB PO SCH (11:05)
[2024-09-08] MEDS: ENOXAPARIN 40 MG/0.4 ML SYRINGE SQ SCH (11:05)
[2024-09-08] MEDS: lamoTRIgine 100 MG TAB PO SCH (11:05)
[2024-09-08] MEDS: FLUTICASONE 110 MCG INHALER INHALATION SCH (11:40)
[2024-09-08 11:48] LABS: Appearance,Urine Cloudy (Clear); Bacteria,Urine Few /hpf; Bilirubin,Urine Negative (Negative); Blood,Urine Negative (Negative); Budding Yeast,Urine Rare /hpf; Color,Urine Light Yellow; Glucose,Urine (UA) Negative (Negative); Hyaline Casts,Urine 1 /lpf (0-2); Ketones,Urine Negative (Negative); Leukocyte Esterase,Urine Large (Negative); Nitrite,Urine Positive (Negative); Protein,Urine Trace (Negative); RBC,Urine 2 /hpf (0-5); Specific Gravity,Urine 1.015 (1.001-1.035); Squamous Epithelial Cell,Urine 2 /hpf (0-4); Triple Phosphate Crystal,Urine Rare /hpf; Urobilinogen,Urine <2.0 mg/dL (<2.0); WBC,Urine 84 /hpf (0-5)
[2024-09-08] MEDS: OXYBUTYNIN XL 5 MG TAB.ER.24 PO SCH (12:53)
[2024-09-08] MEDS: MULTIVITAMINS, THERA 1 EACH TAB PO SCH (16:25)
[2024-09-08] MEDS: SENNOSIDES-DOCUSATE SODIUM 1 EACH TAB PO SCH (16:25)
[2024-09-08] MEDS: CHOLECALCIFEROL 10 MCG (400 IU) TABLET PO SCH (16:25)
[2024-09-08] MEDS: IPRATROPIUM-ALBUTEROL 3 ML NEB INHALATION PRN (16:33)
[2024-09-08] MEDS ORDERED: NON FORMULARY DRUG (Ensure Enlive 237 ML) PO SCH (17:00)
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
[2024-09-08] MEDS: methylPREDNISolone SOD SUCCI 40 MG/ML 1 ML VIAL IV SCH (21:01)
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
--- NOTE | 2024-09-09 14:26 | FL ---
Modified barium swallow. HISTORY: Dysphagia. Modified barium swallow was performed with the department of speech pathology. The patient was prese nted with various consistencies of barium. There is no evidence for aspiration. Mild transient penetration noted. Full report is to follow from the department of speech pathology. Impression: Mild transient penetration noted. [facility], , 09/09/2024 2:24 PM
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
[2024-09-10] MEDS: MAGNESIUM HYDROXIDE 2,400 MG/30 ML CUP PO PRN (10:32)
[2024-09-10] MEDS: methylPREDNISolone 4 MG TAB TAPER PO SCH (10:32)
[2024-09-10 11:43] LABS: African American GFR (CKD) 80 (>60 ml/min/1.73 sqM); Anion Gap 5 mmol/L; Blood Urea Nitrogen 24 mg/dL (7-17); Calcium 9.2 mg/dL (8.4-10.2); Carbon Dioxide 24 mmol/L (22-30); Chloride 117 mmol/L (98-107); Glucose 85 mg/dL (74-99); Non-African American GFR(CKD) 69 (>60 ml/min/1.73 sqM); Potassium 3.5 mmol/L (3.5-5.1); Sodium 146 mmol/L (137-145)
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
[2024-09-10 13:34] VITALS: BP 123/74; RESP 19; TEMP 96.7
--- NOTE | 2024-09-10 14:39 | P.DS ---
Providers Date of admission: 09/08/24 01:21 Expected date of discharge: 09/10/24 Attending physician: Emil Preston Consults: 09/08/24 01:19 Consult Physician Routine Consulting Provider: Layton Zaman Consult Reason/Comments: increased work of breathing Do you want consulting provider notified?: Yes Primary care physician: [facility] Course: Chief Complaint: Wheezing This is 74-year-old patient, who follows with Dr. Rodrigez, resident at [facility]. Chronic stable medical conditions include hypertension, seizure disorder, chronic medical debility patient's non-ambulatory, significant arthritis. Patient was sent in for wheezing. Per the EMS report patient was laying in bed with audible crackles inspiratory next very. Patient is on precautions for aspiration because of high risk. Patient not a good historian. Can only answer simple questions. Audibly wheezing. Slight cough. Denies any obvious fever and chills. September 09: Wheezing has improved. Seen by speech therapist and. Underwent modified barium swallow. Found to have mild impairment. Patient recommended to have ground meals and thin liquids. Patient was at the [facility] on ground consistency. Will follow today. In should be able to be discharged tomorrow. September 10: Wheezing much improved. Tolerating diet. As per speech. Patient return to [facility]. Answering simple questions. Delay Past medical history to include: Chronic constipation, COPD, urinary incontinence, hypertension, seizure disorder, subdural hemorrhage Social history: Patient smoked up to 2 packs a day 2020 o. No alcohol. At [facility] Family history: Reviewed, noncontributory to presentation Physical examination: VITAL SIGNS: 96.7, 69, 19, 123/74, 93% room air GENERAL: BMI 23.8, laying in bed awake EYES: Pupils equal. Conjunctiva normal. HEENT: Chronic facial rash l, oral cavity grossly normal. NECK: JVD not raised; masses not palpable. HEART: First and second heart sounds are normal; no edema. LUNGS: Respiratory rate increased l improved air entry ABDOMEN: Soft, nontender, liver spleen not palpable, no masses palpable. PSYCH: Patient able to answer simple questions. MUSCULAR skeletal: Evidence of severe OA the hands with significant finger deformity. Wasting of small muscles of the hand. NEUROLOGICAL: Cranial nerves grossly intact; no facial asymmetry, decreased power lower extremity with bilateral foot drop INVESTIGATIONS, reviewed in the clinical context: September 10: Sodium 146 potassium 3.5 creatinine 0.85 Modified barium swallow: Mild dysphagia September 07: White count 6.7 hemoglobin 12.3 platelets 178 sodium 142 potassium 4.2 BUN 38 creatinine 1.15 September 07: Potassium 5.7 BUN 43 creatinine 1.18 Troponin I less than 0.012 Influenza type A, type B, RSV, COVID-19: Not detected UA positive for nitrite, leukoesterase, WBC EKG tracing personally reviewed by me-normal sinus rhythm. Chest x-ray film personally reviewed by me-expiration of film. Possible atelectasis Assessment and plan: -Acute COPD exacerbation in a previous smoker: Improved DuoNeb every 4, nebulized Pulmicort, IV Solu-Medrol DC on DuoNeb, prednisone taper -Severe bilateral primary osteoarthritis Use Tylenol as needed -Essential hypertension Lopressor -Chronic urinary stress incontinence Ditropan XL -GERD PPI -Chronic mild impairment, dysphagia Seen by speech therapist and Had modified barium swallow Ground consistency food with thin liquids. No straws. Liquids from spoon. Small bites and sips -Chronic medical debility Patient is non-ambulatory -Chronic bilateral foot drop -Asymptomatic bacteriuria-patient does not any urinary symptoms Disposition: Return to [facility] Past Medical History Past Medical History: Hypertension, Seizure Disorder, Skin Disorder Additional Past Medical History / Comment(s): Subdural hemorrhage- [facility] History of Any Multi-Drug Resistant Organisms: MRSA Date of last positivie culture/infection: 11/02/18 MDRO Source:: THIGH Past Surgical History: Orthopedic Surgery Additional Past Surgical History / Comment(s): left ovary removed Past Psychological History: No Psychological Hx Reported Smoking Status: Former smoker Past Alcohol Use History: None Reported, Rare Past Drug Use History: None Reported Plan - Discharge Summary Discharge Rx Participant: No New Discharge Prescriptions: New Ipratropium-Albuterol Nebulize [Duoneb 0.5 mg-3 mg/3 ml Soln] 3 ml INHALATION TID each predniSONE 10 mg PO DAILY #30 tab Continue Sennosides/Docusate Sodium [Leona Colace] 1 tab PO BID@0800,1700 Multivitamins, Thera [Multivitamin (formulary)] 1 tab PO DAILY@1700 Metoprolol Tartrate [Lopressor] 25 mg PO BID@0800,1700 Mag Hydrox/Al Hydrox/Simeth [Maalox] 15 ml PO Q6H PRN PRN Reason: Gi Upset Cholecalciferol [Vitamin D3 (10 Mcg = 400 Iu)] 10 mcg PO DAILY@1700 Acetaminophen [Tylenol 8 Hour] 650 mg PO Q4H PRN PRN Reason: Pain Ensure Enlive 237 ml PO BID@0800,1700 Fluticasone Furoate [Arnuity Ellipta] 1 puff INHALATION RT-DAILY Polyvinyl Alcohol Drops 2 drops BOTH EYES Q6H PRN PRN Reason: dry irritated eyes Tolterodine ER [Detrol LA] 2 mg PO DAILY@0800 polyethylene glycoL 3350 [Miralax] 17 gm PO DAILY PRN PRN Reason: Constipation Na Phos,M-B/Na Phos,Di-Ba [Fleet Adult] 133 ml RECTAL DAILY PRN PRN Reason: Constipation Magnesium Hydroxide [Milk of Magnesia Concentrate] 7,200 mg PO Q48H PRN PRN Reason: Constipation lamoTRIgine [LaMICtal] 100 mg PO BID@0800,1700 bisacodyL 10 mg RECTAL DAILY PRN PRN Reason: Constipation Pantoprazole [Protonix] 40 mg PO DAILY@0800 Discontinued Ipratropium/Albuter 20-100Mcg [Combivent Respimat 20-100Mcg Inhaler] 2 puff INHALATION RT-BID Potassium Chloride ER [K-Dur 10] 10 meq PO DAILY@0800 Furosemide [Lasix] 40 mg PO DAILY@0800 Loratadine [Claritin] 10 mg PO DAILY Discharge Medication List Acetaminophen [Tylenol 8 Hour] 650 mg PO Q4H PRN 06/13/21 [History] Cholecalciferol [Vitamin D3 (10 Mcg = 400 Iu)] 10 mcg PO DAILY@1700 06/13/21 [History] Mag Hydrox/Al Hydrox/Simeth [Maalox] 15 ml PO Q6H PRN 06/13/21 [History] Magnesium Hydroxide [Milk of Magnesia Concentrate] 7,200 mg PO Q48H PRN 06/13/21 [History] Metoprolol Tartrate [Lopressor] 25 mg PO BID@0800,1700 06/13/21 [History] Multivitamins, Thera [Multivitamin (formulary)] 1 tab PO DAILY@17006/13/21 [History] Na Phos,M-B/Na Phos,Di-Ba [Fleet Adult] 133 ml RECTAL DAILY PRN 06/13/21 [History] Sennosides/Docusate Sodium [Leona Colace] 1 tab PO BID@0800,1700 06/13/21 [History] Tolterodine ER [Detrol LA] 2 mg PO DAILY@0800 06/13/21 [History] bisacodyL 10 mg RECTAL DAILY PRN 06/13/21 [History] lamoTRIgine [LaMICtal] 100 mg PO BID@0800,1700 06/13/21 [History] polyethylene glycoL 3350 [Miralax] 17 gm PO DAILY PRN 06/13/21 [History] Ensure Enlive 237 ml PO BID@0800,1700 09/08/24 [History] Fluticasone Furoate [Arnuity Ellipta] 1 puff INHALATION RT-DAILY 09/08/24 [History] Pantoprazole [Protonix] 40 mg PO DAILY@0800 09/08/24 [History] Polyvinyl Alcohol Drops 2 drops BOTH EYES Q6H PRN 09/08/24 [History] Ipratropium-Albuterol Nebulize [Duoneb 0.5 mg-3 mg/3 ml Soln] 3 ml INHALATION TID each 09/10/24 [Rx] predniSONE 10 mg PO DAILY #30 tab 09/10/24 [Rx] Follow up Appointment(s)/Referral(s): Chirag Rodrigez DO [Primary Care Provider] - 1-2 days Patient Instructions/Handouts: Aspiration Pneumonia (DC) Activity/Diet/Wound Care/Special Instructions: Diet: ground, nectar thick liquids, no straws or sippy cups, one on one feeding. Head of bed 45 degrees or more at all times
[2024-09-10 16:42] VITALS: PULSE 70
== END 2024-09-10 17:12 ==
LOC: EC 21:32 → 4SSUR 09-08 01:21
PROVIDERS: ADMIT Hospitalist; ATTEND Hospitalist
DX: J44.1 Chronic obstructive pulmonary disease with (acute) exacerbation (principal); J45.20 Mild intermittent asthma, uncomplicated; J98.11 Atelectasis; N17.9 Acute kidney failure, unspecified; E87.5 Hyperkalemia; G40.909 Epilepsy, unspecified, not intractable, without status epilepticus; I10 Essential (primary) hypertension; K59.09 Other constipation; R13.10 Dysphagia, unspecified; M19.91 Primary osteoarthritis, unspecified site; N39.3 Stress incontinence (female) (male); K21.9 Gastro-esophageal reflux disease without esophagitis; M21.371 Foot drop, right foot; M21.372 Foot drop, left foot; R82.71 Bacteriuria; R53.81 Other malaise; S06.5XAD Traumatic subdural hemorrhage with loss of consciousness status unknown, subsequent encounter; V89.2XXD Person injured in unspecified motor-vehicle accident, traffic, subsequent encounter; Z66 Do not resuscitate; Z87.891 Personal history of nicotine dependence; Z98.2 Presence of cerebrospinal fluid drainage device; Z99.3 Dependence on wheelchair; Z79.51 Long term (current) use of inhaled steroids; Z79.899 Other long term (current) drug therapy; Z88.0 Allergy status to penicillin; Z88.5 Allergy status to narcotic agent
CPT/HCPCS: 96376; 96361 ×3; 96372 ×3; 96375; 96365; 96366; 99285; 36415; 94640 ×6; 94760; 93005 ×2; 92610; 92526; 92611; 85379; 80053; 80048 ×2; 83605; 84484; 85025; 81001; 87636; 74230; 71046; G0378 ×3; J0456; J1650 ×3; J7509; J2919 ×2